=== PATIENT | female | born 1995 | race Caucasian/White ===

== ENCOUNTER 2019-10-31 19:33 | Emergency (ER) | payer SELFPAY ==
[~2019-10-31] VITALS: Ht 160 cm; Wt 78.5 kg
[2019-10-31 19:39] VITALS: Ht 160 cm; Wt 78.5 kg
[2019-10-31 20:52] LABS: BASOPHIL % 1.7 % (0-2); PLATELET COUNT 248 x10^3mcL (130-400); RED CELL DISTRIBUTION WIDTH 17.2 % (11.5-14.5)
[2019-10-31 21:06] LABS: CALCIUM 9.8 mg/dL (8.5-10.1); CARBON DIOXIDE 25.8 mmol/L (21-32); CHLORIDE SERUM 105 mmol/L (98-107); CREATININE SERUM 0.9 mg/dL (0.6-1.0); GFR1 > 60 mL/min; GLUCOSE SERUM 100 mg/dL (74-106); POTASSIUM SERUM 3.8 mmol/L (3.5-5.1); SODIUM SERUM 140 mmol/L (136-145)
[2019-10-31 21:12] LABS: AMPHETAMINE QUAL UR NONE DETECTED (See below)
[2019-10-31 21:19] LABS: ALBUMIN 3.7 g/dL (3.4-5.0); ALKALINE PHOSPHATASE 127 U/L (46-116); ALT/SGPT 17 U/L (14-59); AST/SGOT 12 U/L (15-37); TOTAL PROTEIN, SERUM 7.9 g/dL (6.4-8.2)
[2019-10-31 23:51] VITALS: BP 116/72
== END 2019-10-31 23:51 | disposition short-term general hospital (02) ==
LOC: ED 19:33
PROVIDERS: Emergency Medicine
DX: G93.9 Disorder of brain, unspecified (principal); R56.9 Unspecified convulsions; Z88.0 Allergy status to penicillin; Z98.890 Other specified postprocedural states; Z88.1 Allergy status to other antibiotic agents
CPT/HCPCS: J1100; J1885; J1953; J2405; J7030